=== PATIENT | male | born 2000 | race African-American/Black ===

== ENCOUNTER 2021-09-30 05:47 | Emergency (ER) | payer SELFPAY ==
[~2021-09-30] VITALS: Ht 175.3 cm; Wt 73.0 kg
[2021-09-30] MEDS ORDERED: KETOROLAC 30MG/ML VIAL IV STA (06:02)
[2021-09-30] MEDS ORDERED: METOCLOPRAMIDE HCL 10MG/2ML VIAL IV ONE (06:15)
[2021-09-30] MEDS ORDERED: SODIUM CHLORIDE 0.9% 1,000 ML IV ONE (06:15)
[2021-09-30 06:21] VITALS: BP 118/80
[2021-09-30] MEDS ORDERED: TOPUD PO (07:30)
== END 2021-09-30 08:32 | disposition home or self-care (01) ==
LOC: ER 05:47
DX: R51.9 Headache, unspecified (principal); F15.10 Other stimulant abuse, uncomplicated; F11.10 Opioid abuse, uncomplicated; J45.909 Unspecified asthma, uncomplicated
CPT/HCPCS: 96361; 96374; 96375; 99284; J1885; J2765; J7030